=== PATIENT | female | born 2000 | race African-American/Black ===

== ENCOUNTER 2020-11-26 13:15 | Emergency (ER) | payer BC ==
[~2020-11-26] VITALS: Ht 165.1 cm; Wt 69.9 kg
--- NOTE | 2020-11-26 13:57 | NUR ---
Report from TRAVIS Hernandez. Assumed care.
--- NOTE | 2020-11-26 14:07 | NUR ---
Dr. Lyon at bedside.
[2020-11-26] MEDS ORDERED: KETOROLAC 30 MG/1 ML IM ONE (14:30)
[2020-11-26 14:55] LABS: BASOPHILS % (AUTO) 0 % (0-1); EOSINOPHILS % (AUTO) 0 % (1-7); LYMPHOCYTES % (AUTO) 12 % (22-44); MD NO; MEAN CORPUSCULAR HGB CONC 33.8 g/dL (32.4-35.8); MEAN PLATELET VOLUME 7.5 fL (7.4-10.4); MONOCYTES % (AUTO) 7 % (2-9); NEUTROPHILS % (AUTO) 81 % (42-75); PLATELET COUNT 307 x10^3/uL (130-400); RED BLOOD COUNT 4.94 x10^6/uL (3.82-5.3); RED CELL DISTRIBUTION WIDTH 12.7 % (9.6-15.2)
[2020-11-26 15:06] LABS: ALBUMIN 4.5 g/dL (3.4-5.0); ANION GAP 7 mmol/L (5-15); CALCIUM 9.3 mg/dL (8.5-10.1); CHLORIDE 110 mmol/L (98-107)
[2020-11-26 15:12] LABS: ALANINE AMINOTRANSFERASE 24 U/L (12-78); ALKALINE PHOSPHATASE 60 U/L (45-117); BILIRUBIN,TOTAL 0.4 mg/dL (0.2-1.0); CREATININE 0.91 mg/dL (0.55-1.02); TOTAL PROTEIN 8.4 g/dL (6.4-8.2)
--- NOTE | 2020-11-26 15:28 | NUR ---
PATIENT NOT READY UNABLE TO DO CT EXAM
--- NOTE | 2020-11-26 15:30 | NUR ---
Jigna myrick pt.- MARIANNE walked to lab.
[2020-11-26 15:52] LABS: MICROSCOPIC AUTO
[2020-11-26 16:43] VITALS: BP 125/80
== END 2020-11-26 16:49 | disposition home or self-care (01) ==
LOC: ED 16:44
DX: R31.29 Other microscopic hematuria (principal); R10.9 Unspecified abdominal pain
CPT/HCPCS: 36415; 74176; 80053; 81001; 83690; 84703; 85025; 99284